=== PATIENT | female | born 1950 | race Hispanic/Latino ===

== ENCOUNTER 2018-04-29 17:00 | Emergency (ER) | payer MEDICARE, MEDICAID ==
[2018-04-29] MEDS ORDERED: Acetaminophen 500 MG TAB ONE (19:05)
--- NOTE | 2018-04-29 19:36 | RAD ---
PORTABLE CHEST: 04/29/18 HISTORY: Cough and congestion. Heart size appears slightly enlarged. Aorta is tortuous. The lungs are clear of infiltrates. IMPRESSION: Minimal cardiomegaly. POS: [facility]
== END 2018-04-29 19:07 | disposition home or self-care (01) ==
LOC: ERS 17:00
DX: J40 Bronchitis, not specified as acute or chronic (principal); E11.9 Type 2 diabetes mellitus without complications; I10 Essential (primary) hypertension; F41.9 Anxiety disorder, unspecified; F32.9 Major depressive disorder, single episode, unspecified; Z79.82 Long term (current) use of aspirin; Z79.899 Other long term (current) drug therapy
CPT/HCPCS: 71045

== ENCOUNTER 2018-12-13 10:45 | Outpatient (CLI) | payer MEDICARE, MEDICAID ==
[2018-12-13 11:31] LABS: Anion Gap 11 mmol/L (10-20); BUN (Urea Nitrogen) 22 mg/dL (9.8-20.1); Calc. Creatinine Clearance 0 mL/min (70-130); Calcium 9.5 mg/dL (7.8-10.44); Carbon Dioxide 27 mmol/L (23-31); Chloride 105 mmol/L (98-107); Estimated GFR-MDRD 52; Glucose 221 mg/dL (80-115); Potassium 4.4 mmol/L (3.5-5.1); Sodium 139 mmol/L (136-145)
== END 2018-12-13 10:46 | disposition home or self-care (01) ==
LOC: LABBT 10:45
PROVIDERS: ATTEND Surgery
DX: Z01.818 Encounter for other preprocedural examination (principal); R22.41 Localized swelling, mass and lump, right lower limb
CPT/HCPCS: 80048; 93005; 93010

== ENCOUNTER 2018-12-14 07:44 | Day surgery (SDC) | payer MEDICARE, MEDICAID ==
[2018-12-13 10:36] VITALS: BMI 38.7
[2018-12-14] MEDS ORDERED: ceFAZolin Sodium (SDC) 2 GM/100 ML BAG ONE (08:07)
[2018-12-14] MEDS ORDERED: Fentanyl 100 MCG/2 ML VIAL ONE ×3 (09:52→11:44)
[2018-12-14] MEDS ORDERED: Bupivacaine/Epinephrine 0.25% 30 ML VIAL ONE (10:30)
--- NOTE | 2018-12-14 15:41 | OP ---
DATE OF PROCEDURE: 12/14/2018 PREOPERATIVE DIAGNOSIS: Soft tissue mass, right posterior leg, 5 cm. POSTOPERATIVE DIAGNOSIS: Soft tissue mass, right posterior leg, 5 cm. PROCEDURE PERFORMED: Excision of soft tissue mass/cyst, right posterior leg. ANESTHESIA: General. ESTIMATED BLOOD LOSS: Minimal. COMPLICATIONS: None. DESCRIPTION OF PROCEDURE: The patient was taken to the operating room and laid supine on the operating room table. After general anesthetic was obtained, she was placed in left lateral decubitus position. The area around her soft tissue mass in the right posterior leg was prepped and draped in a sterile fashion. An elliptical incision was made transversely. The soft tissue mass/cyst was dissected from surrounding structures. It was taken out intact and sent to Path for final diagnosis. The wound was irrigated. Local anesthetic was applied. The wound was closed using 3-0 Vicryl, 4-0 Monocryl, and Dermabond. The patient was sent to Recovery in stable condition. All instrument counts, needle counts, and lap counts were correct. Job ID: [id number]
== END 2018-12-14 13:48 | disposition home or self-care (01) ==
LOC: SDC 07:44
PROVIDERS: ATTEND Surgery
PROC: 0JBL0ZZ Excision of Right Upper Leg Subcutaneous Tissue and Fascia, Open Approach (ICD-10-PCS; principal; 2018-12-14)
DX: L72.0 Epidermal cyst (principal); E11.9 Type 2 diabetes mellitus without complications; F41.9 Anxiety disorder, unspecified
CPT/HCPCS: 88304; J0690; J3010

== ENCOUNTER 2019-05-16 16:45 | Emergency (ER) | payer MEDICARE ==
--- NOTE | 2019-05-16 17:13 | CT ---
CT Brain WO Con: 05/16/2019 5:03 PM CLINICAL HISTORY: Stroke. COMPARISON: None. FINDINGS: Hemorrhage: None. Ventricular system: Normal in size and morphology for the patient's age. Cerebral parenchyma: Microvascular ischemic disease Midline shift: None. Mass: No mass effect. Calvarium: Normal. Visualized Paranasal sinuses: Scattered mild inflammatory mucosal thickening. IMPRESSION: No acute intracranial hemorrhage or mass effect.
[2019-05-16 17:17] LABS: #Basophils 0.1 thou/uL (0.0-0.2); #Eosinphils 0.4 thou/uL (0.0-0.7); #Lymphocytes 4.1 thou/uL (1.20-3.40); #Monocytes 0.5 thou/uL (0.11-0.59); #Neutrophils 6.4 thou/uL (1.40-6.50); %Basophils 0.6 % (0.0-1.0); %Eosinophils 3.4 % (0.0-10.0); %Lymphocytes 35.7 % (21.0-51.0); %Monocytes 4.7 % (0.0-10.0); %Neutrophils 55.6 % (42.0-75.0); Hemoglobin 13.7 g/dL (12.0-16.0); Mean Corpuscular HGB CONC 33.7 g/dL (32.0-36.0); Mean Corpuscular Hemoglobin 31.8 pg (27.0-31.0); Mean Corpuscular Volume 94.4 fL (78.0-98.0); Mean Platelet Volume 9.7 fL (7.4-10.4); Platelet Count 167 thou/uL (130-400); RBC Distribution Width 11.3 % (11.5-14.5); Red Blood Cell (RBC) Count 4.29 mill/uL (4.20-5.40); White Blood Cell (WBC) Count 11.5 thou/uL (4.8-10.8)
[2019-05-16 17:25] LABS: Prothrombin Time 13.4 SEC (12.0-14.7)
[2019-05-16 17:26] LABS: PTT 32.2 SEC (22.9-36.1)
[2019-05-16 17:30] LABS: ALT (SGPT) Less than 7 U/L (8-55); AST (SGOT) 18 U/L (5-34); Albumin 3.7 g/dL (3.4-4.8); Alkaline Phosphatase 182 U/L (40-110); Anion Gap 12 mmol/L (10-20); BUN (Urea Nitrogen) 27 mg/dL (9.8-20.1); Bilirubin, Total 0.6 mg/dL (0.2-1.2); CK (CPK) 94 U/L (29-168); Calc. Creatinine Clearance 0 mL/min (70-130); Calcium 9.3 mg/dL (7.8-10.44); Carbon Dioxide 27 mmol/L (23-31); Chloride 104 mmol/L (98-107); Estimated GFR-MDRD 48; Globulin 4.1 g/dL (2.4-3.5); Glucose 194 mg/dL (80-115); Potassium 4.3 mmol/L (3.5-5.1); Protein, Total 7.8 g/dL (6.0-8.3); Sodium 139 mmol/L (136-145)
[2019-05-16] MEDS ORDERED: Dexamethasone 10 MG/ML VIAL ONE (18:09)
--- NOTE | 2019-05-16 18:22 | CT ---
CT ANGIOGRAM HEAD WITH IV CONTRAST AND 3D RECONSTRUCTIONS CT ANGIOGRAM NECK WITH IV CONTRAST AND 3D RECONSTRUCTIONS: History: Left facial droop and slurred speech. Comparison: None. FINDINGS: Vascular calcifications are seen at the aortic arch. There is a common origin of the left common rodriguez tid artery and innominate artery which are patent. There is mild atherosclerotic plaque and irregular ity involving the origin of the left subclavian artery which is otherwise patent. The right subclavia n artery, where visualized, also appears patent. The bilateral common carotid arteries are patent with mild atherosclerotic plaque seen in the distal common carotid arteries and in the region of the carotid bulbs. There is mild (less than 50%) stenosis involving the origin and proximal right internal carotid arter y. No significant stenosis is seen involving the left internal carotid artery. The vertebral arteries are co-dominant and patent bilaterally. The bilateral middle cerebral and anterior cerebral arteries are patent. The distal vertebral arterie s as well as basilar artery are patent. The bilateral middle cerebral arteries are patent. No intracranial aneurysm is seen within the limitations of the technique of this examination. There is opacification of the left maxillary antrum with mild mucosal thickening in the right maxilla ry antrum and a few posterior ethmoidal air cells. IMPRESSION: 1. No focal stenosis or branch occlusion is seen involving the grindstone of [place] or vertebral basilar system. 2. Atherosclerotic calcifications involving the carotid artery bifurcations bilaterally with mild, bu t less than 50%, maximal stenosis involving the origin and proximal right internal carotid artery. 3. Patent bilateral vertebral arteries. 4. Above findings discussed with Dr. Carney in the Emergency Department at 1736 hours 05-16-19. POS: [facility]
--- NOTE | 2019-05-16 18:26 | RAD ---
FRONTAL VIEW CHEST: Comparison: 04-29-18 Indication: Emergency exam. FINDINGS: Cardiac silhouette is enlarged. No focal consolidation or effusion. No discrete pneumothorax. Osseous degenerative change is present. IMPRESSION: Enlarged cardiac silhouette. Correlate clinically. POS: [facility]
[2019-05-16 18:56] LABS: Bilirubin Negative (Negative); Blood, Urine Negative (Negative); Clarity Clear (Clear); Glucose, Urine (Dipstick) Normal (Negative); Leukocyte Negative Leu/uL (Negative); Nitrite Negative (Negative); Protein, Urine (Dipstick) Negative (Neg-Trace); Urobilinogen Normal mg/dL (Less than 2)
[2019-05-16] MEDS ORDERED: Acyclovir 800 mg Tablet PO SCH (19:00)
--- NOTE | 2019-05-17 14:27 | EKG ---
Test Reason : Blood Pressure : / mmHG Vent. Rate : 053 BPM Atrial Rate : 053 BPM P-R Int : 140 ms QRS Dur : 090 ms QT Int : 510 ms P-R-T Axes : 030 046 049 degrees QTc Int : 478 ms Sinus bradycardia Otherwise normal ECG Confirmed by MIKO PETIT ([id number]), editor school photograph CHARLY SOLO ([id number]) on 05/17/2019 2:26:37 PM Referred By: Confirmed By:MIKO PETIT
== END 2019-05-16 19:32 | disposition home or self-care (01) ==
LOC: ERS 16:45
DX: G51.0 Bell's palsy (principal); I16.0 Hypertensive urgency; E11.9 Type 2 diabetes mellitus without complications; I10 Essential (primary) hypertension; M19.90 Unspecified osteoarthritis, unspecified site; Z79.82 Long term (current) use of aspirin; Z79.899 Other long term (current) drug therapy
CPT/HCPCS: 36415; 36416; 70450; 70496; 70498; 71045; 80053; 81003; 82550; 84484; 85025; 85610; 85730; 86850; 86900; 86901; 93005; 96374; J1100

== ENCOUNTER 2021-01-03 21:09 | Observation (INO) | payer MEDICARE, MEDICAID ==
[2021-01-03 22:10] LABS: #Eosinphils 0.2 thou/uL (0.0-0.7); #Lymphocytes 3.5 thou/uL (1.20-3.40); #Monocytes 0.7 thou/uL (0.11-0.59); #Neutrophils 7.5 thou/uL (1.40-6.50); %Basophils 0.4 % (0.0-1.0); %Eosinophils 1.9 % (0.0-10.0); %Lymphocytes 29.2 % (21.0-51.0); %Neutrophils 62.5 % (42.0-75.0); Hemoglobin 11.9 g/dL (12.0-16.0); Mean Corpuscular HGB CONC 31.7 g/dL (32.0-36.0); Mean Corpuscular Volume 97.6 fL (78.0-98.0); Mean Platelet Volume 9.8 fL (7.4-10.4); Platelet Count 167 thou/uL (130-400); RBC Distribution Width 11.8 % (11.5-14.5); Red Blood Cell (RBC) Count 3.85 mill/uL (4.20-5.40); White Blood Cell (WBC) Count 11.9 thou/uL (4.8-10.8)
[2021-01-03 22:33] LABS: ALT (SGPT) 18 U/L (8-55); AST (SGOT) 33 U/L (5-34); Alkaline Phosphatase 204 U/L (40-110); Anion Gap 12 mmol/L (10-20); BUN (Urea Nitrogen) 28 mg/dL (9.8-20.1); Bilirubin, Total 0.4 mg/dL (0.2-1.2); Calc. Creatinine Clearance 0 mL/min (70-130); Calcium 9.8 mg/dL (7.8-10.44); Carbon Dioxide 28 mmol/L (23-31); Chloride 106 mmol/L (98-107); Globulin 3.8 g/dL (2.4-3.5); Glucose 139 mg/dL (80-115); Potassium 4.1 mmol/L (3.5-5.1); Protein, Total 7.8 g/dL (5.8-8.1); Sodium 142 mmol/L (136-145)
[2021-01-03 23:04] LABS: INR-International Normal Ratio 1.1
[2021-01-03 23:05] LABS: PTT 33.3 sec (22.9-36.1)
[2021-01-03] MEDS ORDERED: Aspirin Chewable 81 MG TAB ONE (23:43)
[2021-01-03 23:47] LABS: Bilirubin Negative (Negative); Blood, Urine Negative (Negative); Clarity Clear (Clear); Glucose, Urine (Dipstick) Normal (Negative); Ketone, Urine Negative (Negative); Leukocyte 25 Leu/uL (Negative); Nitrite Negative (Negative); Protein, Urine (Dipstick) 30 mg/dL (Neg-Trace); RBC/HPF 0-3 HPF (0-3); Specific Gravity, Urine 1.017 (1.002-1.036); Urobilinogen Normal mg/dL (Less than 2); WBC/HPF 0-3 HPF (0-3)
[2021-01-03 23:50] LABS: Bacteria/HPF Rare-Few HPF (None Seen)
[2021-01-04] MEDS ORDERED: Amlodipine 5 MG TAB ONE (00:54)
[2021-01-04] MEDS ORDERED: hydrALAZINE 20 MG/ML VIAL SLOW IVP PRN (08:46)
[2021-01-04] MEDS ORDERED: Aspirin 325 mg Enteric Coated Tablet PO SCH (09:00)
[2021-01-04] MEDS: Enoxaparin Sodium 40 MG/0.4 ML SYRINGE SC SCH (10:21)
[2021-01-04] MEDS ORDERED: Dextrose 5% in Water 1,000 ML IV PRN (12:05)
[2021-01-04] MEDS ORDERED: Dextrose 50% Abboject 50 ML SYRINGE SLOW IVP PRN (12:05)
[2021-01-04] MEDS ORDERED: HumaLOG 300 UNITS/3 ML VIAL SC PRN ×2 (12:05)
[2021-01-04] MEDS ORDERED: Ondansetron PF 4 MG/2 ML Vial IVP PRN (12:05)
[2021-01-04] MEDS ORDERED: Acetaminophen 325 MG TAB PO PRN (12:05)
[2021-01-04] MEDS ORDERED: hydrALAZINE 25 MG TAB PO SCH (15:00)
[2021-01-04] MEDS: Carvedilol 25 MG TAB PO SCH (15:52)
[2021-01-04 18:02] LABS: SARS-CoV-2 PCR by NAA Not Detected (NotDetected)
[2021-01-04] MEDS: hydrALAZINE 25 MG TAB PO SCH (20:55)
[2021-01-04] MEDS ORDERED: Atorvastatin Calcium 40 MG TAB PO SCH (21:00)
[2021-01-04] MEDS ORDERED: Amlodipine 10 MG TAB PO SCH (21:00)
[2021-01-05 05:36] LABS: #Eosinphils 0.2 thou/uL (0.0-0.7); #Lymphocytes 3.4 thou/uL (1.20-3.40); #Monocytes 0.5 thou/uL (0.11-0.59); %Basophils 0.1 % (0.0-1.0); %Eosinophils 2.1 % (0.0-10.0); %Lymphocytes 37.3 % (21.0-51.0); %Monocytes 5.6 % (0.0-10.0); %Neutrophils 54.8 % (42.0-75.0); Hemoglobin 10.5 g/dL (12.0-16.0); Mean Corpuscular Hemoglobin 32.1 pg (27.0-31.0); Mean Corpuscular Volume 97.3 fL (78.0-98.0); Mean Platelet Volume 9.5 fL (7.4-10.4); Platelet Count 131 thou/uL (130-400); RBC Distribution Width 11.6 % (11.5-14.5); Red Blood Cell (RBC) Count 3.27 mill/uL (4.20-5.40); White Blood Cell (WBC) Count 9.2 thou/uL (4.8-10.8)
[2021-01-05 06:01] LABS: Anion Gap 11 mmol/L (10-20); BUN (Urea Nitrogen) 26 mg/dL (9.8-20.1); Calc. Creatinine Clearance 57 mL/min (70-130); Calcium 9.1 mg/dL (7.8-10.44); Carbon Dioxide 27 mmol/L (23-31); Cardiac Risk 2.9 (Less than 4.5); Chloride 107 mmol/L (98-107); Cholesterol 97 mg/dl (< 200 Desired); Glucose 93 mg/dL (80-115); HDL Cholesterol 34 mg/dL (>60 Neg Risk); LDL Cholesterol, Calculated 47 mg/dL; Potassium 4.3 mmol/L (3.5-5.1); Sodium 141 mmol/L (136-145); Triglycerides 79 mg/dL (Less than 150)
[2021-01-05] MEDS: Enoxaparin Sodium 40 MG/0.4 ML SYRINGE SC SCH (08:01)
[2021-01-05] MEDS: hydrALAZINE 25 MG TAB PO SCH (08:02)
[2021-01-05] MEDS: Carvedilol 25 MG TAB PO SCH (08:03)
[2021-01-05] MEDS ORDERED: Clopidogrel Bisulfate 75 MG TAB PO SCH (09:00)
[2021-01-05] MEDS ORDERED: PARoxetine 20 MG TAB PO SCH (09:00)
[2021-01-05] MEDS ORDERED: Hydrochlorothiazide 25 MG TAB PO SCH ×2 (09:00)
[2021-01-05] MEDS ORDERED: Losartan 25 MG TAB PO SCH ×2 (09:00)
[2021-01-05] MEDS ORDERED: Bupropion 150 MG XL TAB PO SCH (09:00)
[2021-01-05] MEDS ORDERED: Aspirin 81 mg Enteric Coated Tablet PO SCH (09:00)
[2021-01-05 11:18] VITALS: BMI 35.3
[2021-01-05 12:03] VITALS: BP 134/76; TEMP 98.6
== END 2021-01-05 14:46 | disposition home or self-care (01) ==
LOC: ERS 21:09 → 2SE 23:35 → ERHOLD 23:42 → 2SE 01-04 09:32
PROVIDERS: ADMIT Internal Medicine; ATTEND Internal Medicine
DX: G45.9 Transient cerebral ischemic attack, unspecified (principal); I12.9 Hypertensive chronic kidney disease with stage 1 through stage 4 chronic kidney disease, or unspecified chronic kidney disease; E11.22 Type 2 diabetes mellitus with diabetic chronic kidney disease; N18.30 Chronic kidney disease, stage 3 unspecified; I08.3 Combined rheumatic disorders of mitral, aortic and tricuspid valves; E78.5 Hyperlipidemia, unspecified; D64.89 Other specified anemias; D72.829 Elevated white blood cell count, unspecified; F32.9 Major depressive disorder, single episode, unspecified; R94.31 Abnormal electrocardiogram [ECG] [EKG]; M19.90 Unspecified osteoarthritis, unspecified site; Z20.822 Contact with and (suspected) exposure to COVID-19; Z86.73 Personal history of transient ischemic attack (TIA), and cerebral infarction without residual deficits; Z79.82 Long term (current) use of aspirin; Z79.899 Other long term (current) drug therapy
CPT/HCPCS: 70450; 70551; 71045; 80048; 80053; 80061; 82962 ×2; 84484; 85025 ×2; 85610; 85730; 87086; 93005; 93306; 97116; 97139 ×2; 99285; U0003; U0005; 36415; 36416; 81003; 81015; 96372; G0378; J1650

== ENCOUNTER 2021-03-19 08:52 | Outpatient (CLI) | payer MEDICARE | END 2021-03-19 08:53 | disposition home or self-care (01) | LOC: BICRAD 08:52 | PROVIDERS: ATTEND Physician Assistant | DX: M79.641 Pain in right hand (principal); M19.041 Primary osteoarthritis, right hand ==

== ENCOUNTER 2021-06-13 10:00 | Outpatient (CLI) | payer MEDICARE, OTHER | END 2021-06-13 10:01 | disposition home or self-care (01) | LOC: SCSRAD 10:00 | PROVIDERS: ATTEND Physician Assistant | DX: S40.011A Contusion of right shoulder, initial encounter (principal); M79.601 Pain in right arm ==

== ENCOUNTER 2022-03-04 12:43 | Outpatient (CLI) | payer MEDICARE, MEDICAID | END 2022-03-04 12:44 | disposition home or self-care (01) | LOC: BICMAMMO 12:43 | PROVIDERS: ATTEND Physician Assistant | DX: Z12.31 Encounter for screening mammogram for malignant neoplasm of breast (principal); Z13.820 Encounter for screening for osteoporosis; Z78.0 Asymptomatic menopausal state; Z80.3 Family history of malignant neoplasm of breast | CPT/HCPCS: 77063; 77067; 77080 ==